=== PATIENT | female | born 1985 | race African-American/Black ===

== ENCOUNTER 2017-02-25 05:28 | Emergency (ER) | payer MEDICAID ==
[~2017-02-25] VITALS: Ht 167.6 cm; Wt 113.4 kg
[2017-02-25 05:28] VITALS: BP_SYST 126
[~2017-02-25 05:28] MED LIST: HYDR4TAB26 PO; LORA2TAB PO; METR500T PO; MIRT15TA7 PO
[2017-02-25 05:55] VITALS: BP_SYST 122
== END 2017-02-25 05:55 | disposition home or self-care (01) ==
LOC: SED 05:28
DX: J06.9 Acute upper respiratory infection, unspecified (principal)
CPT/HCPCS: 99283

== ENCOUNTER 2017-07-05 07:41 | Inpatient (IN) | payer MEDICAID ==
[~2017-07-05] VITALS: Ht 167.6 cm; Wt 90.7 kg
[2017-07-05 07:41] VITALS: BP_SYST 151
[2017-07-05] MEDS ORDERED: NACL 0.9% 1,000 ML IV ONE (08:02)
[2017-07-05] MEDS ORDERED: MORPHINE 2 MG/ML INJ. SYRINGE IVP ONE (08:15)
[2017-07-05] MEDS ORDERED: ONDANSETRON HCL 4 MG/2 ML VIAL IVP ONE (08:15)
[2017-07-05 08:28] LABS: HEMATOCRIT 44.7 % (36-48); HEMOGLOBIN 14.4 g/dL (12.0-16.0); MEAN CORPUSCULAR HEMOGLOBIN 27 pg (27-31); MEAN CORPUSCULAR HGB CONC 32 % (32-36); MEAN CORPUSCULAR VOLUME 84 fL (79.0-98.0); PLATELET COUNT (AUTO) 381 K/uL (130-430); RED BLOOD CELL COUNT(AUTO) 5.32 MIL/uL (4.2-6.2); RED CELL DISTRIBUTION WIDTH 13.8 % (9.0-15.0); WHITE BLOOD COUNT (AUTO) 16.4 K/uL (4.8-10.8)
[2017-07-05 08:31] LABS: BILIRUBIN,URINE NEGATIVE (NEGATIVE); BLOOD, URINE NEGATIVE (NEGATIVE); CLARITY/URINE SL HAZY (CLEAR); COLOR,URINE YELLOW (YELLOW); GLUCOSE,URINE NEGATIVE (NEGATIVE); KETONES,URINE NEGATIVE (NEGATIVE); LEUKOCYTE ESTERASE ,URINE NEGATIVE (NEGATIVE); NITRITE, URINE NEGATIVE (NEGATIVE); PH,URINE 5.5 (5.0-8.0); PROTEIN URINE NEGATIVE (NEGATIVE); UROBILINOGEN,URINE 0.2 (0.2-1.0)
[2017-07-05 09:04] LABS: CALCIUM 9.2 mg/dL (8.4-11.0); CREATININE 0.81 mg/dL (0.55-1.30); POTASSIUM 3.9 mmol/L (3.5-5.1)
[2017-07-05 09:08] LABS: ALBUMIN 3.9 g/dL (3.4-4.8); TOTAL BILIRUBIN 0.4 mg/dL (0.0-1.0)
[2017-07-05 09:19] LABS: PROTHROMBIN TIME 10.2 SECS (9.5-12.5)
[2017-07-05 10:16] LABS: BASOPHILS % (MANUAL) 0 % (0-2); EOSINOPHILS % (MANUAL) 2 % (0-7); LYMPHOCYTES % (MANUAL) 13 % (20-46); MONOCYTES % (MANUAL) 4 % (0-11)
[2017-07-05 11:40] VITALS: BP_SYST 129
[2017-07-05] MEDS ORDERED: ACETAMINOPHEN 325 MG TABLET PO PRN (12:15)
[2017-07-05] MEDS ORDERED: MORPHINE 4 MG/ML INJ. SYRINGE IVP PRN (12:15)
[2017-07-05] MEDS: D5NS 1,000 ML IV SCH ×2 (12:20→22:00)
[2017-07-05] MEDS ORDERED: PIPERACILLIN/TAZO 3.375/DEX-IS 50 ML IV SCH (14:00)
[2017-07-05] MEDS ORDERED: ONDANSETRON HCL 4 MG/2 ML VIAL IM PRN (14:15)
[2017-07-05] MEDS ORDERED: ONDANSETRON HCL 4 MG/2 ML VIAL IVP PRN (14:15)
[2017-07-05 16:50] VITALS: BP_SYST 128
[2017-07-05] MEDS: HYDROmorphone 2 MG/ML VIAL IVP PRN (17:47)
[2017-07-05 20:00] VITALS: BP_SYST 94
[2017-07-05] MEDS: metroNIDAZOLE 500 mg/NS 100 ML IV SCH (22:55)
[2017-07-05 23:00] VITALS: BP_SYST 111
[2017-07-05] MEDS: MORPHINE 2 MG/ML INJ. SYRINGE IVP PRN (23:06)
[2017-07-05 23:51] VITALS: BP_SYST 116
[2017-07-06] MEDS: PIPERACILLIN/TAZO 3.375/DEX-IS 50 ML IV SCH ×4 (00:03→19:49)
[2017-07-06 03:54] VITALS: BP_SYST 100
[2017-07-06] MEDS: MORPHINE 2 MG/ML INJ. SYRINGE IVP PRN (06:41)
[2017-07-06] MEDS: metroNIDAZOLE 500 mg/NS 100 ML IV SCH ×3 (06:42→21:53)
[2017-07-06 08:30] VITALS: BP_SYST 101
[2017-07-06 08:57] LABS: BASOPHILS # (AUTO) 0.2 K/uL (0.0-0.2); BASOPHILS % (AUTO) 1.1 % (0.0-2.0); EOSINOPHILS # (AUTO) 0.1 K/uL (0.0-0.4); HEMATOCRIT 37.8 % (36-48); HEMOGLOBIN 12.3 g/dL (12.0-16.0); LYMPHOCYTES # (AUTO) 1.3 K/uL (1.0-5.5); LYMPHOCYTES % (AUTO) 9.7 % (20.5-51.5); MEAN CORPUSCULAR HEMOGLOBIN 28 pg (27-31); MEAN CORPUSCULAR HGB CONC 33 % (32-36); MEAN CORPUSCULAR VOLUME 84 fL (79.0-98.0); MONOCYTES # (AUTO) 0.5 K/uL (0.0-1.0); MONOCYTES % (AUTO) 3.5 % (1.7-9.3); NEUTROPHILS # (AUTO) 11.7 K/uL (1.8-7.7); NEUTROPHILS % (AUTO) 84.7 % (40.0-70.0); PLATELET COUNT (AUTO) 336 K/uL (130-430); RED BLOOD CELL COUNT(AUTO) 4.48 MIL/uL (4.2-6.2); WHITE BLOOD COUNT (AUTO) 13.8 K/uL (4.8-10.8)
[2017-07-06 09:10] LABS: ALBUMIN 3.1 g/dL (3.4-4.8); CALCIUM 8.4 mg/dL (8.4-11.0); CREATININE 0.74 mg/dL (0.55-1.30); TOTAL BILIRUBIN 0.7 mg/dL (0.0-1.0)
[2017-07-06 12:31] VITALS: BP_SYST 111
[2017-07-06] MEDS: D5NS 1,000 ML IV SCH ×2 (12:37→17:00)
[2017-07-06] MEDS: HYDROmorphone 2 MG/ML VIAL IVP PRN ×2 (12:39→20:39)
[2017-07-06 16:30] VITALS: BP_SYST 105
[2017-07-06] MEDS: ONDANSETRON HCL 4 MG/2 ML VIAL IVP PRN ×2 (17:16→23:19)
[2017-07-06 20:10] VITALS: BP_SYST 94
[2017-07-07 00:51] VITALS: BP_SYST 98
[2017-07-07] MEDS: PIPERACILLIN/TAZO 3.375/DEX-IS 50 ML IV SCH ×5 (01:42→23:21)
[2017-07-07] MEDS: D5NS 1,000 ML IV SCH ×2 (01:49→14:07)
[2017-07-07 04:47] VITALS: BP_SYST 90
[2017-07-07] MEDS: metroNIDAZOLE 500 mg/NS 100 ML IV SCH ×3 (05:32→21:16)
[2017-07-07 08:00] VITALS: BP_SYST 123
[2017-07-07] MEDS: HYDROmorphone 2 MG/ML VIAL IVP PRN ×3 (10:18→23:22)
[2017-07-07 11:58] VITALS: BP_SYST 115
[2017-07-07 16:12] VITALS: BP_SYST 106
[2017-07-07] MEDS ORDERED: traMADol HCL HCL 50 MG TABLET (ULTRAM) PO PRN (16:30)
[2017-07-07] MEDS: ONDANSETRON HCL 4 MG/2 ML VIAL IVP PRN (17:28)
[2017-07-07 20:00] VITALS: BP_SYST 96
[2017-07-07] MEDS: DOXYCYCLINE HYCLATE 100 MG CAPSULE PO SCH (21:16)
[2017-07-08 00:13] VITALS: BP_SYST 115; BP_SYST 131
[2017-07-08 03:20] VITALS: BP_SYST 103
[2017-07-08] MEDS: D5NS 1,000 ML IV SCH ×2 (04:29→08:49)
[2017-07-08] MEDS: PIPERACILLIN/TAZO 3.375/DEX-IS 50 ML IV SCH ×2 (05:41→12:17)
[2017-07-08] MEDS: metroNIDAZOLE 500 mg/NS 100 ML IV SCH ×2 (06:30→14:14)
[2017-07-08 06:48] LABS: BASOPHILS % (AUTO) 0.3 % (0.0-2.0); EOSINOPHILS # (AUTO) 0.3 K/uL (0.0-0.4); EOSINOPHILS % (AUTO) 2.7 % (0.0-4.0); HEMATOCRIT 36.4 % (36-48); LYMPHOCYTES # (AUTO) 1.7 K/uL (1.0-5.5); MEAN CORPUSCULAR HEMOGLOBIN 28 pg (27-31); MEAN CORPUSCULAR HGB CONC 33 % (32-36); MEAN CORPUSCULAR VOLUME 86 fL (79.0-98.0); MONOCYTES # (AUTO) 0.5 K/uL (0.0-1.0); MONOCYTES % (AUTO) 5.2 % (1.7-9.3); NEUTROPHILS # (AUTO) 6.9 K/uL (1.8-7.7); NEUTROPHILS % (AUTO) 73.8 % (40.0-70.0); PLATELET COUNT (AUTO) 358 K/uL (130-430); RED BLOOD CELL COUNT(AUTO) 4.25 MIL/uL (4.2-6.2); RED CELL DISTRIBUTION WIDTH 13.7 % (9.0-15.0); WHITE BLOOD COUNT (AUTO) 9.4 K/uL (4.8-10.8)
[2017-07-08 07:17] LABS: CREATININE 0.74 mg/dL (0.55-1.30); POTASSIUM 3.7 mmol/L (3.5-5.1); TOTAL BILIRUBIN 0.2 mg/dL (0.0-1.0)
[2017-07-08 08:00] VITALS: BP_SYST 103
[2017-07-08 08:23] LABS: CALCIUM 8.5 mg/dL (8.4-11.0)
[2017-07-08] MEDS: DOXYCYCLINE HYCLATE 100 MG CAPSULE PO SCH (08:48)
[2017-07-08] MEDS: HYDROmorphone 2 MG/ML VIAL IVP PRN (09:31)
[2017-07-08 12:36] VITALS: BP_SYST 108
[2017-07-08 14:29] VITALS: BP_SYST 104
[2017-07-08] MEDS: ONDANSETRON HCL 4 MG/2 ML VIAL IVP PRN (14:38)
[2017-07-08 16:04] VITALS: BP_SYST 105
== END 2017-07-08 16:35 | disposition home or self-care (01) | DRG 531 ==
LOC: SED 07:41 → SMU 10:57
PROVIDERS: ADMIT Internal Medicine Hospice and Palliative Medicine; ATTEND Internal Medicine Hospice and Palliative Medicine
DX: N73.9 Female pelvic inflammatory disease, unspecified (principal); D72.829 Elevated white blood cell count, unspecified; N83.209 Unspecified ovarian cyst, unspecified side; N92.6 Irregular menstruation, unspecified; Z93.3 Colostomy status; Z90.49 Acquired absence of other specified parts of digestive tract; Z98.891 History of uterine scar from previous surgery
CPT/HCPCS: 36415; 76830-TC; 76857; 80053; 81003; 83690-TC; 85007; 85025; 85027; 85610-TC; 85730-TC; 96361; 96374; 96375; 99285; J1170; J2270; J2405; J2543; J3490; J7030; J7042

== ENCOUNTER 2017-07-10 20:57 | Emergency (ER) | payer MEDICAID ==
[~2017-07-10] VITALS: Ht 167.6 cm; Wt 90.7 kg
[2017-07-10 21:07] VITALS: BP_SYST 131
--- NOTE | 2017-07-10 22:31 | NUR ---
Placed in room 03 . Placed on electrical maintenance technician, blood pressure machine and pulse oximeter. To gown for exam. Side rails up. Report given to JENNY Mann.
--- NOTE | 2017-07-10 22:32 | NUR ---
Patient AAOx4, ambulatory. Patient states having pain to left side of pelvis since approximately 0800 this morning; patient states pain is a sharp sensation with pain scale 10/10. Patient states pain radiates down right leg. Patient denies nausea, vomiting, and disrrhea at this time. Patient denies any mechanism of injury and denies painful urination. Patient denies any other complaints.
--- NOTE | 2017-07-10 22:58 | NUR ---
ER Dr. Garcias at bedside examining patient.
[2017-07-10] MEDS ORDERED: NACL 0.9% 1,000 ML IV ONE (22:59)
[2017-07-10] MEDS ORDERED: ONDANSETRON HCL 4 MG/2 ML VIAL IVP ONE (23:00)
[2017-07-10] MEDS ORDERED: HYDROmorphone 1 MG INJ. 1 MG/ML AMPUL IVP ONE (23:00)
[2017-07-10 23:17] LABS: BILIRUBIN,URINE NEGATIVE (NEGATIVE); BLOOD, URINE 3+ (NEGATIVE); CLARITY/URINE SL CLOUDY (CLEAR); COLOR,URINE RED (YELLOW); GLUCOSE,URINE 3+ (NEGATIVE); KETONES,URINE NEGATIVE (NEGATIVE); LEUKOCYTE ESTERASE ,URINE NEGATIVE (NEGATIVE); NITRITE, URINE NEGATIVE (NEGATIVE); PROTEIN URINE 1+ (NEGATIVE); UROBILINOGEN,URINE 0.2 (0.2-1.0)
[2017-07-10 23:20] LABS: BACTERIA,URINE RARE /HPF (None Seen); RBC,URINE >100 /HPF (0-3); WBC,URINE 0-3 /HPF (0-3)
--- NOTE | 2017-07-10 23:50 | NUR ---
Patient refused pelvic ultrasound.
[2017-07-11 00:01] LABS: EOSINOPHILS # (AUTO) 0.2 K/uL (0.0-0.4); MEAN CORPUSCULAR HEMOGLOBIN 27 pg (27-31); MEAN CORPUSCULAR HGB CONC 32 % (32-36); MEAN CORPUSCULAR VOLUME 85 fL (79.0-98.0)
[2017-07-11 00:04] LABS: BASOPHILS # (AUTO) 0.1 K/uL (0.0-0.2); BASOPHILS % (AUTO) 0.8 % (0.0-2.0); EOSINOPHILS % (AUTO) 1.3 % (0.0-4.0); HEMATOCRIT 45.8 % (36-48); HEMOGLOBIN 14.4 g/dL (12.0-16.0); LYMPHOCYTES # (AUTO) 4.6 K/uL (1.0-5.5); LYMPHOCYTES % (AUTO) 29.1 % (20.5-51.5); MONOCYTES # (AUTO) 0.4 K/uL (0.0-1.0); MONOCYTES % (AUTO) 2.6 % (1.7-9.3); NEUTROPHILS # (AUTO) 10.5 K/uL (1.8-7.7); NEUTROPHILS % (AUTO) 66.2 % (40.0-70.0); PLATELET COUNT (AUTO) 443 K/uL (130-430); RED BLOOD CELL COUNT(AUTO) 5.37 MIL/uL (4.2-6.2); WHITE BLOOD COUNT (AUTO) 15.8 K/uL (4.8-10.8)
[2017-07-11 00:09] LABS: CALCIUM 9.9 mg/dL (8.4-11.0); CREATININE 0.84 mg/dL (0.55-1.30); POTASSIUM 3.5 mmol/L (3.5-5.1)
[2017-07-11 00:14] LABS: ALBUMIN 3.9 g/dL (3.4-4.8); TOTAL BILIRUBIN 0.2 mg/dL (0.0-1.0)
--- NOTE | 2017-07-11 00:30 | NUR ---
Patient calmly resting in bed, vital signs within therapeutic range.
[2017-07-11 01:04] VITALS: BP_SYST 125
--- NOTE | 2017-07-11 01:04 | NUR ---
Patient given written and verbal discharge instructions and verbalizes understanding. ER MD GRANADOS discussed with patient the results and treatment provided. Patient in stable condition. ID arm band removed. IV catheter removed intact and dressing applied, no active bleeding. Rx of ZOFRAN AND NORCO 5-325 given. Patient educated on pain management and to follow up with PMD. Pain Scale 2/10. Opportunity for questions provided and answered.
== END 2017-07-11 01:04 | disposition home or self-care (01) ==
LOC: SED 20:57
DX: R10.2 Pelvic and perineal pain (principal); R73.9 Hyperglycemia, unspecified
CPT/HCPCS: 36415; 80053; 81000; 81025; 82150; 83690; 85025; 96361; 96374; 96375; 99284; J1170; J2405; J7030